=== PATIENT | male | born 1990 | race African-American/Black ===

== ENCOUNTER 2022-10-28 21:32 | Emergency (ER) | payer BC ==
[~2022-10-28] VITALS: Ht 185.4 cm; Wt 102.1 kg
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
--- NOTE | 2022-10-28 21:50 | NUR ---
DR LOVELL AT BEDSIDE
[2022-10-28] MEDS ORDERED: CYCL5TAB PO (22:34)
[2022-10-28] MEDS ORDERED: IBUP-1955 PO (22:34)
--- NOTE | 2022-10-28 22:44 | NUR ---
Patient discharged to home in stable condition. Written and verbal after care instructions given. Patient verbalizes understanding of instruction.
[2022-10-28 22:45] VITALS: BP 140/80; TEMP 209.5; O2SAT 97
== END 2022-10-28 22:46 | disposition home or self-care (01) ==
LOC: ER 21:35
DX: S46.811A Strain of other muscles, fascia and tendons at shoulder and upper arm level, right arm, initial encounter (principal); Z90.49 Acquired absence of other specified parts of digestive tract; Z60.2 Problems related to living alone; X58.XXXA Exposure to other specified factors, initial encounter; Y93.67 Activity, basketball; Y92.89 Other specified places as the place of occurrence of the external cause; Y99.8 Other external cause status
CPT/HCPCS: 73030-TC